=== PATIENT | female | born 1985 | race Caucasian/White ===

== ENCOUNTER 2022-03-29 09:44 | Emergency (ER) | payer OTHER ==
[~2022-03-29] VITALS: Ht 165.1 cm; Wt 60.5 kg
[2022-03-29] MEDS ORDERED: MORP-69 (09:56)
[2022-03-29] MEDS ORDERED: D-AMPHETAMINE (09:56)
[2022-03-29] MEDS ORDERED: HYDR-4517 (09:56)
[2022-03-29] MEDS ORDERED: SERT50TA29 (09:56)
[2022-03-29] MEDS ORDERED: NS 1,000 ML IV ONE (10:40)
[2022-03-29] MEDS ORDERED: ONDANSETRON 4MG 2ML VIAL IV ONE (10:40)
[2022-03-29] MEDS ORDERED: ISOVUE-370 76% 100ML VIAL As Ordered ONE (10:42)
[2022-03-29] MEDS ORDERED: SODIUM CHLORIDE 0.9% INJ 10 ML SYR IV PRN (11:20)
[2022-03-29 11:48] LABS: BASO # 0.1 10^3/uL (0.0-0.2); BASO % 1.2 % (0.0-1.0); EOS % 0.5 % (0.0-3.0); HEMATOCRIT 35.6 % (36.0-47.0); HEMOGLOBIN 11.4 g/dl (12.0-15.5); LYMPH # 0.5 10^3/uL (1.5-5.0); LYMPH % 9.1 % (24.0-44.0); MEAN CORPUSCULAR HEMOGLOBIN 28.9 pg (27.0-33.0); MEAN CORPUSCULAR VOLUME 90.4 fl (80.0-96.0); MONO # 0.4 10^3/uL (0.0-0.8); NEUTROPHILS # 4.9 10^3/uL (1.5-8.5); NEUTROPHILS % 82.9 % (36.0-66.0); PLATELET COUNT, AUTOMATED 352 10^3/uL (150-450); RED BLOOD COUNT 3.94 10^6/uL (4.00-5.40); WHITE BLOOD COUNT 5.9 10^3/uL (4.0-10.0)
[2022-03-29] MEDS ORDERED: diphenhydrAMINE 50MG/ML VIAL (J1200) IV STA (11:58)
[2022-03-29] MEDS ORDERED: HYDROMORPHONE HCL 0.5 MG/ 0.5 ML SYRINGE (J1170 PER 1) IV ONE (12:00)
[2022-03-29] MEDS ORDERED: methylPREDNISolone 125MG 2ML VIAL IV ONE (12:00)
[2022-03-29 12:35] LABS: CK-MB VALUE MASS < 1.0 NG/ML (<3.6); CPK CREATINE PHOSPHOKINASE 131 U/L (26-192); MB/CK RELATIVE INDEX 0.76 (< OR =4)
[2022-03-29 14:27] VITALS: BP 100/65
[2022-03-29] MEDS ORDERED: KETOROLAC 30 MG/ML 1ML VIAL IV ONE (14:30)
[2022-03-29 14:38] LABS: MAGNESIUM LEVEL 2.1 MG/DL (1.8-2.4); THYROID STIMULATING HORMONE 1.89 uIU/ML (0.358-3.740)
[2022-03-29 14:49] LABS: APPEARANCE, URINE CLEAR (CLEAR); BACTERIA, URINE AUTO NEGATIVE (NEGATIVE); BILIRUBIN, URINE AUTO NEGATIVE (NEGATIVE); BLOOD, URINE BLOOD NEGATIVE (NEGATIVE); COLOR, URINE STRAW (YELLOW); GLUCOSE, URINE (UA) AUTO NEGATIVE (NEGATIVE); KETONE, URINE AUTO NEGATIVE (NEGATIVE); LEUKOCYTE ESTERASE, URINE AUTO NEGATIVE (NEGATIVE); NITRITE, URINE AUTO NEGATIVE (NEGATIVE); PROTEIN, URINE AUTO NEGATIVE (NEGATIVE); RBC, URINE AUTO 1 /HPF (0-3); SPECIFIC GRAVITY URINE AUTO 1.018 (1.002-1.035); SQUAMOUS EPITHELIAL CELL UR AU 0 /HPF (0-6); UROBILINOGEN, URINE AUTO 0.2 mg/dL (0.0-2.0); WBC, URINE AUTO 0 /HPF (0-3)
== END 2022-03-29 15:07 | disposition home or self-care (01) ==
LOC: M ED 09:44
DX: E86.0 Dehydration (principal); Z85.3 Personal history of malignant neoplasm of breast; Z88.0 Allergy status to penicillin; Z79.899 Other long term (current) drug therapy
CPT/HCPCS: 71275; 72131; 80047; 81001; 82550; 82553; 83735; 84443; 84484; 84702; 85025; 93005; 96361; 96374; 96375; 99284; J1170; J1200; J1642; J1885; J2405; J2930; Q9967

== ENCOUNTER → 2022-05-29 | Outpatient (CLI) | payer OTHER ==
[~2022-05-29] MED LIST: ACET650T15 PO; ADDE20TA PO; ALDA50TA2 PO; ANAS1TAB2 PO; BENA25CA4 PO; BUPR75TA5 PO; COLA100C5 PO; D-AMPHETAMINE; DEXA4TA PO; DOCU100C16 PO; HYDR-4517; HYDR-4517 PO; HYDR-4571 PO; IRON15CH PO; KISQ1PAK3 PO; LEVO1TAB40 PO; LIDOCAINE 1% MDV 20ML VIAL As Ordered ONE; LIDOCAINE 2% 100MG/5ML SDV (FOR ANES.) As Ordered ONE; LORAPOW30; LYNP100T PO; METH-1164 PO; MIDAZOLAM INJ 2MG/2ML VIAL (J2250 PER 1MG) As Ordered ONE; MIRA1POW3 PO; MORP-69; MORP-69 PO; MORP10SO2; MORP10SO2 PO; MORP1SOL4 PO; MSIR30TA PO; NARC1SPR NARES; OLAN1TAB16 PO; ONDA-195 PO; ONDA-83 PO; ONDANSETRON 4MG 2ML VIAL As Ordered ONE; OXYC-517 PO; OXYC20TA40 PO; PHENYLephrine 500MCG 5ML (100MCG/ML) SYRINGE As Ordered ONE; POTA-150 PO; POTA10CA32 PO; PROC10TA5 PO; RAME8TAB2 PO; SENN-52 PO; SENN18TA PO; SERT50TA29; SERT50TA29 PO; SILV1CRE60 TOP; SPIR-10 PO; TAMO20TA8 PO; TIZA2CAP PO; TORS20TA2 PO; TRAN1DIS4 TOP; Wheelchair; fentaNYL 100 MCG/2 ML INJECTION As Ordered ONE; propofoL 200 MG/20 ML VIAL As Ordered ONE; shower chair
[2022-05-29 15:00] VITALS: BP 100/57
== END ==
LOC: M IRPRO 14:10 → MERGE 14:10
PROVIDERS: ATTEND Radiology Diagnostic Radiology
DX: C50.911 Malignant neoplasm of unspecified site of right female breast (principal)

== ENCOUNTER → 2022-06-20 | Outpatient (CLI) | payer OTHER ==
[~2022-06-20] MED LIST changes: -LIDOCAINE 1% MDV 20ML VIAL As Ordered ONE; -LIDOCAINE 2% 100MG/5ML SDV (FOR ANES.) As Ordered ONE; -LORAPOW30; -MIDAZOLAM INJ 2MG/2ML VIAL (J2250 PER 1MG) As Ordered ONE; -OLAN1TAB16 PO; -ONDANSETRON 4MG 2ML VIAL As Ordered ONE; -PHENYLephrine 500MCG 5ML (100MCG/ML) SYRINGE As Ordered ONE; +SODIUM BICARBONATE 8.4% INJ 50MEQ 50 ML VIAL As Ordered ONE; -fentaNYL 100 MCG/2 ML INJECTION As Ordered ONE; -propofoL 200 MG/20 ML VIAL As Ordered ONE
== END ==
LOC: M IRPRO 09:43 → MERGE 09:43
PROVIDERS: ATTEND Radiology Diagnostic Radiology
DX: C50.919 Malignant neoplasm of unspecified site of unspecified female breast (principal)

== ENCOUNTER 2022-06-22 13:23 | Inpatient (IN) | payer OTHER ==
[~2022-06-22] VITALS: Ht 165.1 cm; Wt 59.2 kg
[2022-06-22] VITALS (15 sets, daily range): BP systolic 83–98; BP diastolic 53–63
[~2022-06-22 13:23] MED LIST changes: -ACET650T15 PO; -DOCU100C16 PO; -ONDA-195 PO; -POTA-150 PO; -SODIUM BICARBONATE 8.4% INJ 50MEQ 50 ML VIAL As Ordered ONE
[2022-06-22 14:32] LABS: BASO # 0.1 10^3/uL (0.0-0.2); BASO % 1.6 % (0.0-1.0); EOS % 0.6 % (0.0-3.0); HEMATOCRIT 30.1 % (36.0-47.0); HEMOGLOBIN 9.7 g/dl (12.0-15.5); LYMPH # 0.2 10^3/uL (1.5-5.0); LYMPH % 7.3 % (24.0-44.0); MEAN CORPUSCULAR HEMOGLOBIN 29.8 pg (27.0-33.0); MEAN CORPUSCULAR HGB CONC 32.2 g/dl (32.0-36.5); MEAN CORPUSCULAR VOLUME 92.6 fl (80.0-96.0); MONO # 0.6 10^3/uL (0.0-0.8); MONO % 19.6 % (2.0-8.0); NEUTROPHILS # 2.1 10^3/uL (1.5-8.5); NEUTROPHILS % 67.4 % (36.0-66.0); PLATELET COUNT, AUTOMATED 379 10^3/uL (150-450); RED BLOOD COUNT 3.25 10^6/uL (4.00-5.40); WHITE BLOOD COUNT 3.2 10^3/uL (4.0-10.0)
[2022-06-22 14:43] LABS: INR 0.82; PROTHROMBIN TIME 11.5 SECONDS (12.5-14.5)
[2022-06-22] MEDS ORDERED: BISACODYL 10 MG SUPP PR PRN (14:50)
[2022-06-22] MEDS ORDERED: PERCOCET 5MG/325MG TAB PO PRN ×2 (14:50)
[2022-06-22] MEDS ORDERED: ACETAMINOPHEN TAB 650MG DOSE (2X325MG) PO PRN (14:50)
[2022-06-22] MEDS ORDERED: KCL 20MEQ IN D5/NS 1000ML 1,000 ML IV SCH (14:50)
[2022-06-22] MEDS ORDERED: LEVALBUTEROL 1.25 MG/0.5 ML CONCENTRATE NEB NEB PRN (14:50)
[2022-06-22] MEDS ORDERED: LevoFLOXacin IV 500 MG in IV 1 EA IV ONE (14:55)
[2022-06-22 15:05] LABS: HCG, SERUM QUALITATIVE NEGATIVE (NEGATIVE)
[2022-06-22 15:14] LABS: ALT/SGPT 25 U/L (12-78); BILIRUBIN,DIRECT 0.1 MG/DL (0.0-0.2); BILIRUBIN,TOTAL 0.4 MG/DL (0.2-1.0); BLOOD UREA NITROGEN 14 MG/DL (7-18); CALCIUM LEVEL 7.6 MG/DL (8.5-10.1); CARBON DIOXIDE LEVEL 26 MEQ/L (21-32); CHLORIDE LEVEL 100 MEQ/L (98-107); CREATININE FOR GFR 0.57 MG/DL (0.55-1.30); GLOMERULAR FILTRATION RATE > 60.0 (>60); GLUCOSE, FASTING 113 MG/DL (70-100); NT-PRO BNP 157 PG/ML (<125); POTASSIUM SERUM 4.1 MEQ/L (3.5-5.1); SODIUM LEVEL 134 MEQ/L (136-145); TOTAL PROTEIN 4.9 GM/DL (6.4-8.2)
[2022-06-22 15:22] LABS: RSV AMPLIFICATION NEGATIVE (NEGATIVE)
[2022-06-22 16:29] LABS: LDH LACTATE DEHYDROGENASE 301 U/L (84-246)
[2022-06-22] MEDS ORDERED: LIDOCAINE 1% MDV 20ML VIAL SC ONE (17:35)
[2022-06-22] MEDS ORDERED: MIDAZOLAM INJ 2MG/2ML VIAL (J2250 PER 1MG) IV SCH (17:35)
[2022-06-22] MEDS ORDERED: NS 1,000 ML IV SCH (17:35)
[2022-06-22] MEDS ORDERED: MIDAZOLAM INJ 2MG/2ML VIAL (J2250 PER 1MG) As Ordered ONE (17:36)
[2022-06-22] MEDS ORDERED: flumazeniL 0.5 MG/5 ML VIAL As Ordered ONE (17:37)
[2022-06-22] MEDS ORDERED: LIDOCAINE 1% MDV 20ML VIAL As Ordered ONE ×2 (17:37→17:38)
[2022-06-22] MEDS: KETOROLAC 30 MG/ML 1ML VIAL IV SCH (18:35)
[2022-06-22 19:23] LABS: PH BODY FLUID 7.596 UNITS (NOT ESTABLISHED); SOURCE, BODY FLUID pH PLEURAL
[2022-06-22 19:58] LABS: PLEURAL FL COLOR PINK (COLORLESS); SOURCE, BODY FLUID PLEURAL
[2022-06-22 19:59] LABS: APPEARANCE, BODY FLUID HAZY (CLEAR)
[2022-06-22] MEDS: LEVALBUTEROL 1.25 MG/0.5 ML CONCENTRATE NEB NEB SCH (20:00)
[2022-06-22 20:01] LABS: AMYLASE, BODY FLUID 25 U/L (NOT ESTABLISHED); CHOLESTEROL, BODY FLUID < 50 MG/DL (NOT ESTABLISHED); LDH, BODY FLUID 399 U/L (NOT ESTABLISHED); SOURCE, BODY FLUID ALBUMIN PLEURAL; SOURCE, BODY FLUID AMYLASE PLEURAL; SOURCE, BODY FLUID CHOL PLEURAL; SOURCE, BODY FLUID GLUCOSE PLEURAL; SOURCE, BODY FLUID LDH PLEURAL; SOURCE, BODY FLUID TOT PROTEIN PLEURAL; SOURCE, BODY FLUID TRIG PLEURAL; TOTAL PROTEIN, BODY FLUID 1.5 G/DL (NOT ESTABLISHED); TRIGLYCERIDE, BODY FLUID 27 MG/DL (NOT ESTABLISHED)
[2022-06-22] MEDS: DOCUSATE SODIUM 100MG CAPSULE PO SCH ×2 (20:11→20:15)
[2022-06-22] MEDS: HEPARIN SOD (PORCINE) 5000UNITS/ML 1ML VIAL/SYRINGE SC SCH ×2 (20:12→20:15)
[2022-06-22] MEDS ORDERED: MORPHINE 30 MG TAB **MSIR PO PRN (20:35)
[2022-06-22] MEDS: diphenhydrAMINE 50MG/ML VIAL (J1200) IV PRN (20:46)
[2022-06-22] MEDS ORDERED: ACET650T15 PO (20:53)
[2022-06-22] MEDS ORDERED: ONDA-195 PO (20:53)
[2022-06-22] MEDS ORDERED: POTA-150 PO (20:53)
[2022-06-22] MEDS ORDERED: HOME MED LIST COMPLETE! XX SCH (20:55)
[2022-06-22] MEDS: RAMELTEON 8 MG TAB (ROZEREM) PO PRN (22:28)
[2022-06-22] MEDS: SERTRALINE HCL 25 MG TABLET PO SCH (22:28)
[2022-06-22] MEDS ORDERED: HYDROMORPHONE HCL 0.5 MG/ 0.5 ML SYRINGE (J1170 PER 1) IV ONE (22:55)
[2022-06-22] MEDS: ONDANSETRON 4MG 2ML VIAL IV PRN (23:03)
[2022-06-22] MEDS ORDERED: MORPHINE 2 MG/ML 1ML VIAL IV ONE (23:25)
[2022-06-23] VITALS (21 sets, daily range): BP systolic 88–104; BP diastolic 50–70
[2022-06-23] MEDS: KETOROLAC 30 MG/ML 1ML VIAL IV SCH ×5 (00:57→21:34)
[2022-06-23] MEDS: LEVALBUTEROL 1.25 MG/0.5 ML CONCENTRATE NEB NEB SCH ×4 (01:17→20:01)
[2022-06-23] MEDS ORDERED: METOCLOPRAMIDE INJ 10MG/2ML VIAL (J2765 PER 1) IV ONE (01:30)
[2022-06-23] MEDS: MORPHINE 30 MG TAB **MSIR PO PRN ×2 (05:37→18:14)
[2022-06-23 06:14] LABS: BASO # 0.1 10^3/uL (0.0-0.2); BASO % 1.4 % (0.0-1.0); EOS % 0.9 % (0.0-3.0); HEMATOCRIT 27.8 % (36.0-47.0); HEMOGLOBIN 8.8 g/dl (12.0-15.5); LYMPH # 0.2 10^3/uL (1.5-5.0); LYMPH % 5.2 % (24.0-44.0); MEAN CORPUSCULAR HEMOGLOBIN 29.5 pg (27.0-33.0); MEAN CORPUSCULAR HGB CONC 31.7 g/dl (32.0-36.5); MEAN CORPUSCULAR VOLUME 93.3 fl (80.0-96.0); MONO # 0.6 10^3/uL (0.0-0.8); MONO % 16.5 % (2.0-8.0); NEUTROPHILS # 2.5 10^3/uL (1.5-8.5); NEUTROPHILS % 71.7 % (36.0-66.0); PLATELET COUNT, AUTOMATED 336 10^3/uL (150-450); RED BLOOD COUNT 2.98 10^6/uL (4.00-5.40); WHITE BLOOD COUNT 3.5 10^3/uL (4.0-10.0)
[2022-06-23 07:44] LABS: BLOOD UREA NITROGEN 17 MG/DL (7-18); CALCIUM LEVEL 7.4 MG/DL (8.5-10.1); CARBON DIOXIDE LEVEL 29 MEQ/L (21-32); CHLORIDE LEVEL 102 MEQ/L (98-107); CREATININE FOR GFR 0.38 MG/DL (0.55-1.30); GLOMERULAR FILTRATION RATE > 60.0 (>60); GLUCOSE, FASTING 103 MG/DL (70-100); POTASSIUM SERUM 4.2 MEQ/L (3.5-5.1); SODIUM LEVEL 134 MEQ/L (136-145)
[2022-06-23] MEDS: ACETAMINOPHEN 650MG ER TAB (TYLENOL ARTHRITIS) PO SCH ×2 (08:56→21:32)
[2022-06-23] MEDS: DOCUSATE SODIUM 100MG CAPSULE PO SCH ×2 (08:57→21:00)
[2022-06-23] MEDS: MOM 30ML SUSPENSION UDC PO SCH (08:57)
[2022-06-23] MEDS: PANTOPRAZOLE 40MG TAB (PROTONIX) PO SCH (08:57)
[2022-06-23] MEDS: HEPARIN SOD (PORCINE) 5000UNITS/ML 1ML VIAL/SYRINGE SC SCH ×2 (08:58→21:00)
[2022-06-23] MEDS ORDERED: POTASSIUM CHLORIDE 10MEQ SR TABLET PO SCH (09:00)
[2022-06-23] MEDS ORDERED: flumazeniL 0.5 MG/5 ML VIAL As Ordered ONE (11:05)
[2022-06-23] MEDS ORDERED: MIDAZOLAM INJ 2MG/2ML VIAL (J2250 PER 1MG) As Ordered ONE ×2 (11:05→11:06)
[2022-06-23] MEDS ORDERED: LIDOCAINE 1% MDV 20ML VIAL As Ordered ONE (11:07)
[2022-06-23 14:05] LABS: APPEARANCE, BODY FLUID HAZY (CLEAR); PLEURAL FL COLOR YELLOW (COLORLESS); SOURCE, BODY FLUID PLEURAL
[2022-06-23 14:33] LABS: PH BODY FLUID 7.633 UNITS (NOT ESTABLISHED); SOURCE, BODY FLUID pH PLEURAL
[2022-06-23] MEDS ORDERED: LIDOCAINE 1% MDV 20ML VIAL SC ONE (15:00)
[2022-06-23] MEDS ORDERED: MIDAZOLAM INJ 2MG/2ML VIAL (J2250 PER 1MG) IV ONE ×4 (15:00)
[2022-06-23 15:07] LABS: AMYLASE, BODY FLUID 29 U/L (NOT ESTABLISHED); CHOLESTEROL, BODY FLUID < 50 MG/DL (NOT ESTABLISHED); LDH, BODY FLUID 449 U/L (NOT ESTABLISHED); SOURCE, BODY FLUID ALBUMIN PLEURAL; SOURCE, BODY FLUID AMYLASE PLEURAL; SOURCE, BODY FLUID CHOL PLEURAL; SOURCE, BODY FLUID GLUCOSE PLEURAL; SOURCE, BODY FLUID LDH PLEURAL; SOURCE, BODY FLUID TOT PROTEIN PLEURAL; SOURCE, BODY FLUID TRIG PLEURAL; TOTAL PROTEIN, BODY FLUID 1.5 G/DL (NOT ESTABLISHED); TRIGLYCERIDE, BODY FLUID 21 MG/DL (NOT ESTABLISHED)
[2022-06-23] MEDS: ONDANSETRON 4MG 2ML VIAL IV PRN ×2 (15:38→20:20)
[2022-06-23] MEDS ORDERED: HYDROMORPHONE HCL 0.5 MG/ 0.5 ML SYRINGE (J1170 PER 1) IV ONE (16:30)
[2022-06-23] MEDS: RAMELTEON 8 MG TAB (ROZEREM) PO PRN (21:33)
[2022-06-23] MEDS: SERTRALINE HCL 25 MG TABLET PO SCH (21:33)
[2022-06-23] MEDS ORDERED: SERTRALINE HCL 25 MG TABLET PO ONE (22:15)
[2022-06-23] MEDS ORDERED: RAMELTEON 8 MG TAB (ROZEREM) PO ONE (22:15)
[2022-06-23 22:30] LABS: LDH LACTATE DEHYDROGENASE 247 U/L (84-246)
[2022-06-24] MEDS ORDERED: METOCLOPRAMIDE INJ 10MG/2ML VIAL (J2765 PER 1) IV ONE (00:25)
[2022-06-24] MEDS: diphenhydrAMINE 50MG/ML VIAL (J1200) IV PRN ×2 (00:44→21:16)
[2022-06-24] MEDS: LEVALBUTEROL 1.25 MG/0.5 ML CONCENTRATE NEB NEB SCH ×2 (01:22→07:53)
[2022-06-24 04:00] VITALS: BP 92/58
[2022-06-24] MEDS: ONDANSETRON 4MG 2ML VIAL IV PRN ×3 (04:28→20:22)
[2022-06-24] MEDS: MORPHINE 30 MG TAB **MSIR PO PRN ×3 (04:29→19:22)
[2022-06-24] MEDS: KETOROLAC 30 MG/ML 1ML VIAL IV SCH ×5 (06:00→22:55)
[2022-06-24 07:14] LABS: BASO # 0.1 10^3/uL (0.0-0.2); BASO % 1.2 % (0.0-1.0); EOS % 0.5 % (0.0-3.0); HEMATOCRIT 28.4 % (36.0-47.0); LYMPH # 0.1 10^3/uL (1.5-5.0); LYMPH % 3.4 % (24.0-44.0); MEAN CORPUSCULAR HEMOGLOBIN 29.4 pg (27.0-33.0); MEAN CORPUSCULAR HGB CONC 31.7 g/dl (32.0-36.5); MEAN CORPUSCULAR VOLUME 92.8 fl (80.0-96.0); MONO # 0.5 10^3/uL (0.0-0.8); MONO % 12.4 % (2.0-8.0); NEUTROPHILS # 3.3 10^3/uL (1.5-8.5); NEUTROPHILS % 80.3 % (36.0-66.0); PLATELET COUNT, AUTOMATED 363 10^3/uL (150-450); RED BLOOD COUNT 3.06 10^6/uL (4.00-5.40); WHITE BLOOD COUNT 4.1 10^3/uL (4.0-10.0)
[2022-06-24 07:48] LABS: BLOOD UREA NITROGEN 15 MG/DL (7-18); CALCIUM LEVEL 7.3 MG/DL (8.5-10.1); CARBON DIOXIDE LEVEL 26 MEQ/L (21-32); CHLORIDE LEVEL 103 MEQ/L (98-107); CREATININE FOR GFR 0.24 MG/DL (0.55-1.30); GLOMERULAR FILTRATION RATE > 60.0 (>60); GLUCOSE, FASTING 99 MG/DL (70-100); POTASSIUM SERUM 4.5 MEQ/L (3.5-5.1); SODIUM LEVEL 135 MEQ/L (136-145)
[2022-06-24 08:35] VITALS: BP 110/59
[2022-06-24] MEDS: DOCUSATE SODIUM 100MG CAPSULE PO SCH ×2 (09:00→21:00)
[2022-06-24] MEDS: MOM 30ML SUSPENSION UDC PO SCH (09:00)
[2022-06-24] MEDS: HEPARIN SOD (PORCINE) 5000UNITS/ML 1ML VIAL/SYRINGE SC SCH ×2 (09:00→21:20)
[2022-06-24] MEDS: SCOPOLAMINE 1MG TRANSDERMAL PATCH TOP SCH (09:19)
[2022-06-24] MEDS: PANTOPRAZOLE 40MG TAB (PROTONIX) PO SCH (09:19)
[2022-06-24] MEDS: ACETAMINOPHEN 650MG ER TAB (TYLENOL ARTHRITIS) PO SCH ×2 (09:19→21:00)
[2022-06-24] MEDS ORDERED: ALTEPLASE 2MG/2ML VIAL XX ONE (09:40)
[2022-06-24] MEDS: ADDERALL 5 MG TAB PO SCH ×2 (11:00→14:00)
[2022-06-24 12:38] VITALS: BP 91/54
[2022-06-24 16:00] VITALS: BP 137/88
[2022-06-24] MEDS ORDERED: MORPHINE 2 MG/ML 1ML VIAL IV ONE ×2 (16:00→19:45)
[2022-06-24] MEDS: PROCHLORPERAZINE 5MG TAB PO PRN (16:08)
[2022-06-24 20:00] VITALS: BP 96/59
[2022-06-24] MEDS: SERTRALINE HCL 25 MG TABLET PO SCH (21:20)
[2022-06-24] MEDS: RAMELTEON 8 MG TAB (ROZEREM) PO PRN (23:04)
[2022-06-25] VITALS (9 sets, daily range): BP systolic 85–119; BP diastolic 51–74
[2022-06-25] MEDS: ONDANSETRON 4MG 2ML VIAL IV PRN (04:23)
[2022-06-25] MEDS: MORPHINE 30 MG TAB **MSIR PO PRN ×3 (04:24→18:22)
[2022-06-25] MEDS: PROCHLORPERAZINE 5MG TAB PO PRN ×3 (04:43→21:09)
[2022-06-25] MEDS: KETOROLAC 30 MG/ML 1ML VIAL IV SCH ×4 (05:25→23:54)
[2022-06-25 06:04] LABS: HEMATOCRIT 30.7 % (36.0-47.0); HEMOGLOBIN 9.3 g/dl (12.0-15.5); LYMPH # 0.2 10^3/uL (1.5-5.0); LYMPH % 6.8 % (24.0-44.0); MEAN CORPUSCULAR HEMOGLOBIN 28.6 pg (27.0-33.0); MEAN CORPUSCULAR HGB CONC 30.3 g/dl (32.0-36.5); MEAN CORPUSCULAR VOLUME 94.5 fl (80.0-96.0); MONO # 0.7 10^3/uL (0.0-0.8); MONO % 23.3 % (2.0-8.0); NEUTROPHILS # 1.9 10^3/uL (1.5-8.5); NEUTROPHILS % 64.5 % (36.0-66.0); PLATELET COUNT, AUTOMATED 392 10^3/uL (150-450); RED BLOOD COUNT 3.25 10^6/uL (4.00-5.40)
[2022-06-25 06:16] LABS: BLOOD UREA NITROGEN 11 MG/DL (7-18); CALCIUM LEVEL 7.3 MG/DL (8.5-10.1); CARBON DIOXIDE LEVEL 24 MEQ/L (21-32); CHLORIDE LEVEL 102 MEQ/L (98-107); CREATININE FOR GFR 0.38 MG/DL (0.55-1.30); GLOMERULAR FILTRATION RATE > 60.0 (>60); GLUCOSE, FASTING 100 MG/DL (70-100); POTASSIUM SERUM 3.7 MEQ/L (3.5-5.1); SODIUM LEVEL 132 MEQ/L (136-145)
[2022-06-25] MEDS: ADDERALL 5 MG TAB PO SCH ×3 (08:00→13:21)
[2022-06-25] MEDS: HEPARIN SOD (PORCINE) 5000UNITS/ML 1ML VIAL/SYRINGE SC SCH ×2 (08:21→21:00)
[2022-06-25] MEDS: DOCUSATE SODIUM 100MG CAPSULE PO SCH ×2 (08:22→21:00)
[2022-06-25] MEDS: PANTOPRAZOLE 40MG TAB (PROTONIX) PO SCH (08:22)
[2022-06-25] MEDS: MOM 30ML SUSPENSION UDC PO SCH (08:22)
[2022-06-25] MEDS: ACETAMINOPHEN 650MG ER TAB (TYLENOL ARTHRITIS) PO SCH ×2 (08:22→21:14)
[2022-06-25] MEDS ORDERED: KETOROLAC 30 MG/ML 1ML VIAL IV ONE (08:35)
[2022-06-25] MEDS ORDERED: MORPHINE 30 MG SA TAB PO ONE (09:30)
[2022-06-25 10:41] LABS: OSMOLALITY URINE 303 MOSM/KG (50-1400)
[2022-06-25 11:04] LABS: SODIUM,RANDOM URINE < 10 MEQ/L
[2022-06-25] MEDS: ONDANSETRON 4MG TAB PO PRN ×2 (12:19→21:08)
[2022-06-25] MEDS: SERTRALINE HCL 25 MG TABLET PO SCH (21:08)
[2022-06-25] MEDS: RAMELTEON 8 MG TAB (ROZEREM) PO PRN (21:09)
[2022-06-25] MEDS: diphenhydrAMINE 50MG/ML VIAL (J1200) IV PRN (21:11)
[2022-06-26] VITALS (7 sets, daily range): BP systolic 88–105; BP diastolic 54–60
[2022-06-26] MEDS: MORPHINE 30 MG TAB **MSIR PO PRN (01:33)
[2022-06-26] MEDS ORDERED: NS 500 ML IV ONE (04:25)
[2022-06-26] MEDS: KETOROLAC 30 MG/ML 1ML VIAL IV SCH ×4 (05:05→23:16)
[2022-06-26 05:40] LABS: BASO % 1.1 % (0.0-1.0); EOS % 0.7 % (0.0-3.0); HEMATOCRIT 25.3 % (36.0-47.0); LYMPH # 0.2 10^3/uL (1.5-5.0); LYMPH % 7.5 % (24.0-44.0); MEAN CORPUSCULAR HEMOGLOBIN 29.4 pg (27.0-33.0); MEAN CORPUSCULAR HGB CONC 31.6 g/dl (32.0-36.5); MONO # 0.7 10^3/uL (0.0-0.8); MONO % 26.1 % (2.0-8.0); NEUTROPHILS # 1.7 10^3/uL (1.5-8.5); NEUTROPHILS % 62.4 % (36.0-66.0); PLATELET COUNT, AUTOMATED 367 10^3/uL (150-450); RED BLOOD COUNT 2.72 10^6/uL (4.00-5.40); WHITE BLOOD COUNT 2.7 10^3/uL (4.0-10.0)
[2022-06-26 06:18] LABS: BLOOD UREA NITROGEN 12 MG/DL (7-18); CALCIUM LEVEL 6.9 MG/DL (8.5-10.1); CARBON DIOXIDE LEVEL 25 MEQ/L (21-32); CHLORIDE LEVEL 103 MEQ/L (98-107); CREATININE FOR GFR 0.31 MG/DL (0.55-1.30); GLOMERULAR FILTRATION RATE > 60.0 (>60); GLUCOSE, FASTING 95 MG/DL (70-100); POTASSIUM SERUM 3.9 MEQ/L (3.5-5.1); SODIUM LEVEL 133 MEQ/L (136-145)
[2022-06-26] MEDS: ADDERALL 5 MG TAB PO SCH ×3 (08:00→14:00)
[2022-06-26] MEDS: HEPARIN SOD (PORCINE) 5000UNITS/ML 1ML VIAL/SYRINGE SC SCH ×3 (09:00→20:13)
[2022-06-26] MEDS: DOCUSATE SODIUM 100MG CAPSULE PO SCH ×2 (09:00→20:00)
[2022-06-26] MEDS: MOM 30ML SUSPENSION UDC PO SCH (09:00)
[2022-06-26] MEDS: PANTOPRAZOLE 40MG TAB (PROTONIX) PO SCH (09:00)
[2022-06-26] MEDS: ACETAMINOPHEN 650MG ER TAB (TYLENOL ARTHRITIS) PO SCH ×2 (09:38→20:00)
[2022-06-26] MEDS: ONDANSETRON 4MG TAB PO PRN (12:25)
[2022-06-26] MEDS: PROCHLORPERAZINE 5MG TAB PO PRN (12:25)
[2022-06-26] MEDS ORDERED: MORPHINE 2 MG/ML 1ML VIAL IV ONE (15:25)
[2022-06-26] MEDS: diphenhydrAMINE 50MG/ML VIAL (J1200) IV PRN (20:01)
[2022-06-26] MEDS: SERTRALINE HCL 25 MG TABLET PO SCH (20:01)
[2022-06-26] MEDS: RAMELTEON 8 MG TAB (ROZEREM) PO PRN (20:02)
[2022-06-27] VITALS (26 sets, daily range): BP systolic 86–108; BP diastolic 50–65
[2022-06-27] MEDS: PROCHLORPERAZINE 5MG TAB PO PRN ×3 (02:47→21:18)
[2022-06-27] MEDS: ONDANSETRON 4MG TAB PO PRN ×3 (02:47→21:18)
[2022-06-27] MEDS ORDERED: PROMETHAZINE 25 MG TAB PO ONE (04:00)
[2022-06-27] MEDS: KETOROLAC 30 MG/ML 1ML VIAL IV SCH ×2 (05:24→12:15)
[2022-06-27] MEDS ORDERED: PROMETHAZINE 25MG/ML 1ML VIAL IV ONE (06:00)
[2022-06-27] MEDS: ADDERALL 5 MG TAB PO SCH ×3 (08:00→14:00)
[2022-06-27] MEDS: HEPARIN SOD (PORCINE) 5000UNITS/ML 1ML VIAL/SYRINGE SC SCH ×3 (08:07→21:19)
[2022-06-27] MEDS: MOM 30ML SUSPENSION UDC PO SCH (08:07)
[2022-06-27] MEDS: PANTOPRAZOLE 40MG TAB (PROTONIX) PO SCH (08:07)
[2022-06-27] MEDS ORDERED: ANASTRAZOLE 1 MG PO SCH (09:00)
[2022-06-27] MEDS: SCOPOLAMINE 1MG TRANSDERMAL PATCH TOP SCH (09:05)
[2022-06-27] MEDS ORDERED: flumazeniL 0.5 MG/5 ML VIAL As Ordered ONE (13:33)
[2022-06-27] MEDS ORDERED: MIDAZOLAM INJ 2MG/2ML VIAL (J2250 PER 1MG) As Ordered ONE ×3 (13:33→14:22)
[2022-06-27] MEDS ORDERED: LIDOCAINE 1% MDV 20ML VIAL As Ordered ONE ×2 (13:34→14:16)
[2022-06-27] MEDS: ONDANSETRON 4MG 2ML VIAL IV PRN (13:45)
[2022-06-27] MEDS ORDERED: LIDOCAINE 1% MDV 20ML VIAL SC ONE (14:20)
[2022-06-27] MEDS ORDERED: MIDAZOLAM INJ 2MG/2ML VIAL (J2250 PER 1MG) IV STA (14:20)
[2022-06-27] MEDS ORDERED: KETOROLAC 30 MG/ML 1ML VIAL IV ONE ×2 (14:30→20:20)
[2022-06-27] MEDS ORDERED: MORPHINE 2 MG/ML 1ML VIAL IV ONE (17:35)
[2022-06-27] MEDS ORDERED: MORPHINE 10 MG/ML 1ML VIAL IV ONE (17:40)
[2022-06-27] MEDS ORDERED: MORPHINE 4 MG/ML 1ML VIAL/SYRINGE IV ONE (19:20)
[2022-06-27] MEDS ORDERED: NS 500 ML IV ONE (20:20)
[2022-06-27] MEDS: SERTRALINE HCL 25 MG TABLET PO SCH (21:18)
[2022-06-27] MEDS: diphenhydrAMINE 50MG/ML VIAL (J1200) IV PRN (21:18)
[2022-06-27] MEDS: RAMELTEON 8 MG TAB (ROZEREM) PO PRN (21:18)
[2022-06-27] MEDS: MORPHINE 30 MG TAB **MSIR PO PRN (22:52)
[2022-06-28] VITALS (8 sets, daily range): BP systolic 91–102; BP diastolic 51–63
[2022-06-28] MEDS ORDERED: NS 500 ML IV ONE (01:50)
[2022-06-28] MEDS ORDERED: KETOROLAC 30 MG/ML 1ML VIAL IV ONE ×2 (03:00→14:00)
[2022-06-28] MEDS: HEPARIN SOD (PORCINE) 5000UNITS/ML 1ML VIAL/SYRINGE SC SCH ×2 (05:01→14:00)
[2022-06-28] MEDS ORDERED: SODIUM CHLORIDE 0.9% INJ 10 ML SYR IV PRN (05:30)
[2022-06-28 07:06] LABS: BASO % 1.1 % (0.0-1.0); EOS # 0.1 10^3/uL (0.0-0.5); EOS % 1.8 % (0.0-3.0); HEMATOCRIT 24.9 % (36.0-47.0); HEMOGLOBIN 7.7 g/dl (12.0-15.5); LYMPH # 0.2 10^3/uL (1.5-5.0); MEAN CORPUSCULAR HEMOGLOBIN 29.2 pg (27.0-33.0); MEAN CORPUSCULAR HGB CONC 30.9 g/dl (32.0-36.5); MEAN CORPUSCULAR VOLUME 94.3 fl (80.0-96.0); MONO # 0.7 10^3/uL (0.0-0.8); MONO % 24.3 % (2.0-8.0); NEUTROPHILS # 1.8 10^3/uL (1.5-8.5); NEUTROPHILS % 64.4 % (36.0-66.0); PLATELET COUNT, AUTOMATED 393 10^3/uL (150-450); RED BLOOD COUNT 2.64 10^6/uL (4.00-5.40); WHITE BLOOD COUNT 2.8 10^3/uL (4.0-10.0)
[2022-06-28 07:42] LABS: BLOOD UREA NITROGEN 15 MG/DL (7-18); CALCIUM LEVEL 6.9 MG/DL (8.5-10.1); CARBON DIOXIDE LEVEL 23 MEQ/L (21-32); CHLORIDE LEVEL 107 MEQ/L (98-107); CREATININE FOR GFR 0.24 MG/DL (0.55-1.30); GLOMERULAR FILTRATION RATE > 60.0 (>60); GLUCOSE, FASTING 95 MG/DL (70-100); MAGNESIUM LEVEL 2.2 MG/DL (1.8-2.4); SODIUM LEVEL 136 MEQ/L (136-145)
[2022-06-28] MEDS: ADDERALL 5 MG TAB PO SCH ×3 (08:00→14:00)
[2022-06-28] MEDS: MOM 30ML SUSPENSION UDC PO SCH (08:20)
[2022-06-28] MEDS: PANTOPRAZOLE 40MG TAB (PROTONIX) PO SCH (08:21)
[2022-06-28] MEDS ORDERED: SODIUM CHLORIDE 0.9% INJ 10 ML SYR IV SCH (09:00)
[2022-06-28] MEDS ORDERED: LOPERAMIDE 2 MG CAPLET PO ONE ×2 (10:40→15:10)
[2022-06-28] MEDS ORDERED: K-PHOS ORIGINAL (POT.ACID PHOSPHATE) 500MG TAB PO ONE (13:05)
[2022-06-28] MEDS ORDERED: DOCU100C16 PO (14:44)
[2022-06-28 18:02] LABS: HEMATOCRIT 30.5 % (36.0-47.0)
[2022-06-29 20:03] VITALS: BP 161/70
== END 2022-06-28 19:07 | disposition home or self-care (01) | DRG 598 ==
LOC: M ED 13:23 → MERGE 14:49 → M ED INP 14:49 → ENRESERV 15:31 → M PCU 15:40
PROVIDERS: ADMIT Thoracic Surgery (Cardiothoracic Vascular Surgery); ATTEND Internal Medicine
PROC: 0W9B30Z Drainage of Left Pleural Cavity with Drainage Device, Percutaneous Approach (ICD-10-PCS; 2022-06-22)
PROC: 0W9930Z Drainage of Right Pleural Cavity with Drainage Device, Percutaneous Approach (ICD-10-PCS; 2022-06-23)
PROC: 3E0L3TZ Introduction of Destructive Agent into Pleural Cavity, Percutaneous Approach (ICD-10-PCS; 2022-06-24)
PROC: 30233N1 Transfusion of Nonautologous Red Blood Cells into Peripheral Vein, Percutaneous Approach (ICD-10-PCS; principal; 2022-06-28)
DX: C50.919 Malignant neoplasm of unspecified site of unspecified female breast (principal); J91.0 Malignant pleural effusion; C79.51 Secondary malignant neoplasm of bone; C78.7 Secondary malignant neoplasm of liver and intrahepatic bile duct; C78.00 Secondary malignant neoplasm of unspecified lung; E87.1 Hypo-osmolality and hyponatremia; Z91.14 Patient's other noncompliance with medication regimen; Z99.81 Dependence on supplemental oxygen; R26.89 Other abnormalities of gait and mobility; Z90.13 Acquired absence of bilateral breasts and nipples; Z92.3 Personal history of irradiation; Z92.21 Personal history of antineoplastic chemotherapy; F41.9 Anxiety disorder, unspecified; F32.A Depression, unspecified; D63.8 Anemia in other chronic diseases classified elsewhere; F40.9 Phobic anxiety disorder, unspecified; Z87.891 Personal history of nicotine dependence; R53.1 Weakness; K21.9 Gastro-esophageal reflux disease without esophagitis; Z20.822 Contact with and (suspected) exposure to COVID-19; Z79.899 Other long term (current) drug therapy; Z88.0 Allergy status to penicillin; Z91.041 Radiographic dye allergy status; R19.7 Diarrhea, unspecified; T45.1X5A Adverse effect of antineoplastic and immunosuppressive drugs, initial encounter; D70.1 Agranulocytosis secondary to cancer chemotherapy; R59.0 Localized enlarged lymph nodes; R00.0 Tachycardia, unspecified; Z79.891 Long term (current) use of opiate analgesic; E88.09 Other disorders of plasma-protein metabolism, not elsewhere classified

== ENCOUNTER → 2022-07-04 | Outpatient (CLI) | payer OTHER ==
[~2022-07-04] MED LIST changes: +ACET650T15 PO; +DOCU100C16 PO; +LORAPOW30; +OLAN1TAB16 PO; +ONDA-195 PO; +POTA-150 PO
== END ==
LOC: M ONCR 10:49 → MERGE 11:00
PROVIDERS: ATTEND General Practice
DX: C79.51 Secondary malignant neoplasm of bone (principal); C79.2 Secondary malignant neoplasm of skin; M54.6 Pain in thoracic spine; R06.02 Shortness of breath; T45.1X5A Adverse effect of antineoplastic and immunosuppressive drugs, initial encounter; Z92.21 Personal history of antineoplastic chemotherapy; Z92.3 Personal history of irradiation; Z97.8 Presence of other specified devices

== ENCOUNTER → 2022-07-06 | Outpatient (CLI) | payer OTHER ==
[~2022-07-06] MED LIST changes: -LORAPOW30
== END ==
LOC: M PLAIMG 10:58
PROVIDERS: ATTEND Thoracic Surgery (Cardiothoracic Vascular Surgery)
DX: J90 Pleural effusion, not elsewhere classified (principal)

== ENCOUNTER 2022-07-19 11:30 | Outpatient (RCR) | payer OTHER ==
[~2022-07-19 11:30] MED LIST changes: +LORAPOW30
== END 2022-08-09 ==
LOC: M ONCR 11:30
PROVIDERS: ATTEND General Practice
DX: C79.51 Secondary malignant neoplasm of bone (principal)

== ENCOUNTER 2022-07-19 14:03 | Emergency (ER) | payer OTHER ==
[~2022-07-19 14:03] MED LIST changes: +SODIUM CHLORIDE 0.9% INJ 10 ML SYR IV SCH
[2022-07-19] MEDS ORDERED: SODIUM CHLORIDE 0.9% INJ 10 ML SYR IV PRN (14:30)
[2022-07-19] MEDS ORDERED: NS 1,000 ML IV ONE (14:30)
[2022-07-19] MEDS: HYDROMORPHONE HCL 0.5 MG/ 0.5 ML SYRINGE (J1170 PER 1) IV PRN ×2 (14:45→15:33)
[2022-07-19] MEDS ORDERED: NS 1,000 ML IV SCH (15:55)
[2022-07-19 16:10] VITALS: BP 101/58
[2022-07-19] MEDS ORDERED: LORazepam 2 MG/ML VIAL IV STA (16:11)
== END 2022-07-19 18:43 | disposition home or self-care (01) ==
LOC: M ED 14:03
DX: I95.9 Hypotension, unspecified (principal); R00.0 Tachycardia, unspecified; R77.0 Abnormality of albumin; C50.919 Malignant neoplasm of unspecified site of unspecified female breast; Z79.899 Other long term (current) drug therapy; Z88.0 Allergy status to penicillin; Z91.041 Radiographic dye allergy status